=== PATIENT | male | born 1950 | race Caucasian/White ===

== ENCOUNTER 2022-06-13 14:05 | Inpatient (IN) ==
[2022-06-13] MEDS ORDERED: *HR* Warfarin 4 MG TABLET PO ONE ×2 (18:30→19:00)
[2022-06-13] MEDS: Lactulose Oral Soln 20 GM/30 ML UDC PO SCH (21:49)
[2022-06-13] MEDS: Cefdinir 300 MG CAPSULE PO SCH (21:49)
[2022-06-13] MEDS: Nystatin POWDER 30 GM BOTTLE TP SCH (21:49)
[2022-06-14 07:22] LABS: INR 1.5; Prothrombin Time 16.2 Seconds (9.4-12.1)
[2022-06-14 08:00] LABS: Calcium 9.9 mg/dL (8.6-10.3); Potassium 3.8 mEq/L (3.5-5.1)
[2022-06-14] MEDS ORDERED: FLUoxetine 20 MG CAPSULE PO SCH (09:00)
[2022-06-14] MEDS ORDERED: Multivit/Ca/Min/Fe/FA 1 TAB TABLET PO SCH (09:00)
[2022-06-14] MEDS: Cefdinir 300 MG CAPSULE PO SCH (09:04)
[2022-06-14] MEDS: Lactulose Oral Soln 20 GM/30 ML UDC PO SCH (09:04)
[2022-06-14] MEDS: Nystatin POWDER 30 GM BOTTLE TP SCH ×2 (09:04→15:39)
[2022-06-14 11:47] VITALS: O2SAT 95
[2022-06-14 16:24] VITALS: BP 150/89; PULSE 65; RESP 16; TEMP 98.4
[2022-06-14] MEDS ORDERED: *HR* Warfarin 4 MG TABLET PO ONE ×2 (16:45→18:00)
[2022-06-14] MEDS ORDERED: Warfarin perPT PO PRN (18:00)
== END 2022-06-14 16:54 | disposition home health service (06) | DRG 603 ==
LOC: INPGRE 18:03
PROVIDERS: ADMIT Family Medicine; ATTEND Family Medicine